=== PATIENT | male | born 1985 | race Caucasian/White ===

== ENCOUNTER 2018-03-04 21:52 | Emergency (ER) | payer OTHER ==
[~2018-03-04] VITALS: Ht 180.3 cm; Wt 99.8 kg
[~2018-03-04 21:52] MED LIST: COZAAR50 MG
== END 2018-03-04 23:50 | disposition home or self-care (01) ==
LOC: ER 21:52
DX: S93.492A Sprain of other ligament of left ankle, initial encounter (principal); X50.3XXA Overexertion from repetitive movements, initial encounter; Y93.89 Activity, other specified; Y92.89 Other specified places as the place of occurrence of the external cause; Y99.8 Other external cause status

== ENCOUNTER 2018-03-09 07:00 | Outpatient (CLI) | payer OTHER | END 2018-03-09 17:00 | disposition home or self-care (01) | LOC: TOM 07:00 | DX: M25.572 Pain in left ankle and joints of left foot (principal) ==

== ENCOUNTER → 2018-03-11 | Outpatient (CLI) | payer OTHER | END | disposition home or self-care (01) | LOC: MRI 11:14 | DX: S93.492A Sprain of other ligament of left ankle, initial encounter (principal) | CPT/HCPCS: 73718 ==